=== PATIENT | female | born 1950 | race Caucasian/White ===

== ENCOUNTER 2018-01-11 08:51 | Day surgery (SDC) | payer MEDICARE, OTHER ==
[~2018-01-11 08:51] MED LIST: CIPR500; CONEST.625; HYDACE7.5; LANS15EC; OMEP20ER; SERT50
== END 2018-01-11 22:57 | disposition home or self-care (01) ==
LOC: MOI MAM 08:51
PROC: 0HBT3ZX Excision of Right Breast, Percutaneous Approach, Diagnostic (ICD-10-PCS; principal; 2018-01-11)
DX: N60.81 Other benign mammary dysplasias of right breast (principal); N62 Hypertrophy of breast
CPT/HCPCS: 19083; 77065; 88305; 88341; 88342; A4648; G0279

== ENCOUNTER 2018-06-08 05:56 | Day surgery (SDC) | payer MEDICARE, OTHER ==
[~2018-06-08] VITALS: Ht 154.9 cm; Wt 92.5 kg
[~2018-06-08 05:56] MED LIST changes: -CONEST.625; +CONEST.625 PO; +CYCL10 PO; +FISH OIL 1,0001 EACH PO; +MULTI VITAMIN1 EACH PO; +OMEPRAZOLE MAGN20 MG PO; +Prinivil10 MG PO; +SERT50 PO; +Solaraze100 GM TOP
[2018-06-09 04:24] LABS: BASOPHILS ABSOLUTE AUTO 0.04 K/mm3 (0.00-0.23); BASOPHILS PERCENT AUTO 0 % (0-2); EOSINOPHILS ABSOLUTE AUTO 0.07 K/mm3 (0.00-0.68); EOSINOPHILS PERCENT AUTO 1 % (0-6); Hematocrit 27.1 % (33.0-51.0); Hemoglobin 8.6 g/dL (11.5-16.0); IMMATURE GRAN ABSOLUTE AUTO 0.04 K/mm3 (0.00-0.10); IMMATURE GRAN PERCENT AUTO 0 % (0-1); LYMPHOCYTES ABSOLUTE AUTO 3.05 K/mm3 (0.84-5.20); LYMPHOCYTES PERCENT AUTO 24 % (21-46); MONOCYTES ABSOLUTE AUTO 1.38 K/mm3 (0.16-1.47); MONOCYTES PERCENT AUTO 11 % (4-13); Mean Corpuscular HGB 26.7 pg (26.0-34.0); Mean Corpuscular HGB Conc 31.7 g/dL (31.5-36.5); Mean Corpuscular Volume 84 fL (80-100); Mean Platelet Volume 10.1 fL (9.1-12.4); NEUTROPHILS ABSOLUTE AUTO 8.41 K/mm3 (1.96-9.15); NEUTROPHILS PERCENT AUTO 65 % (41-73); Platelet Count 337 K/mm3 (150-400); RDW Coefficient Variation 14.1 % (11.7-14.2); RDW Standard Deviation 43.5 fL (35.1-46.3); Red Blood Cell Count 3.22 M/mm3 (3.80-5.20); White Blood Cell Count 12.99 K/mm3 (4.00-11.30)
[2018-06-09 04:40] LABS: Anion Gap 9 mmol/L (6-16); Blood Urea Nitrogen 13 mg/dL (8-24); Bun/Creatinine Ratio 19.2 (12.0-20.0); CO2, Blood 25 mmol/L (21-32); Chloride, Blood 99 mmol/L (98-108); Creatinine, Blood 0.68 mg/dL (0.40-1.00); Glomerular Filtration Rate >60 (60-); Glucose, Blood 124 mg/dL (70-99); Potassium, Blood 4.2 mmol/L (3.5-5.5); Sodium, Blood 133 mmol/L (136-145)
[2018-06-09] MEDS ORDERED: OXYC5 PO (13:06)
[2018-06-09] MEDS ORDERED: Aspirin EC325 MG PO (13:07)
[2018-06-09] MEDS ORDERED: DOCU100 PO (13:08)
== END 2018-06-09 13:13 | disposition home or self-care (01) ==
LOC: ORSCMMR 05:56 → ORD 07:30 → ORSCMMR 07:30 → SURS 10:52 → ORSCMMR 06-09 13:13 → SURS 06-09 13:13
PROVIDERS: Orthopaedic Surgery
PROC: 0SRC0J9 Replacement of Right Knee Joint with Synthetic Substitute, Cemented, Open Approach (ICD-10-PCS; principal; 2018-06-08 07:30)
DX: M17.11 Unilateral primary osteoarthritis, right knee (principal); M79.7 Fibromyalgia; Z79.899 Other long term (current) drug therapy
CPT/HCPCS: 36415; 73560-RT; 80048; 85025; 88300; 97110; 97116; 97162; 97530; C1713; C1776; G8978; G8979; J0171; J0690; J0735; J1100; J1885; J2250; J2405; J2710; J2795; J3010; J7120

== ENCOUNTER 2018-12-21 06:09 | Day surgery (SDC) | payer MEDICARE, OTHER ==
[~2018-12-21] VITALS: Ht 154.9 cm; Wt 91.6 kg
[~2018-12-21 06:09] MED LIST changes: +Aspirin EC325 MG PO; +CONEST1.25 PO; +DOCU100 PO; +Hair, Skin & N1 EACH PO; +OXYC5 PO
--- NOTE | 2018-12-21 06:36 | NUR ---
History, Chart, Medications and Allergies reviewed before start of procedure. Patient confirms NPO status and agrees with scheduled surgery. Lungs clear T/O to Auscultation. Patient reports completing Chlorhexadine shower X2 prior to admission to hospital. Pre-Op teaching done. Pt verbalizes understanding.
--- NOTE | 2018-12-21 07:07 | NUR ---
WIRED [employer] REPORT COMPLETED AT BEDSIDE WITH JOSE GRANT RN.
--- NOTE | 2018-12-21 07:12 | NUR ---
LIAISON AT BEDSIDE WITH TIME, TRACKER EXPLAINED AND OPPORTUNITY FOR QUESTIONS PROVIDED.
--- NOTE | 2018-12-21 07:18 | NUR ---
PATIENT UP FOR UNMEASURED VOID AT 0700.
--- NOTE | 2018-12-21 16:09 | NUR ---
THERAPY: PT IN ROOM TO SEE PATIENT. PT HAS BEEN UP IN CHAIR. MEDICATED PRN FOR PAIN. WILL MONITOR PROGRESS.
--- NOTE | 2018-12-21 19:23 | NUR ---
PT HAS BEEN STABLE THIS SHIFT. PT PAIN CONTROLLED WITH PRN AND SCHEDULED MEDS. PT WORKED WELL WITH THERAPY TO AMBULATE AND SIT IN CHAIR. PAS, TEDS, POLAR PACK IN PLACE. SL IV PER ORDERS, PT TAKING PO WELL AND VOIDING. TXA COMPLETED. 1 MORE DOSE ABX REMAINING. USES CALL LIGHT APPROPRIATELY. PLAN TO DC HOME TOMORROW. DRESSING CDI.
[2018-12-22 05:06] LABS: BASOPHILS ABSOLUTE AUTO 0.03 K/mm3 (0.00-0.23); BASOPHILS PERCENT AUTO 0 % (0-2); EOSINOPHILS ABSOLUTE AUTO 0.04 K/mm3 (0.00-0.68); EOSINOPHILS PERCENT AUTO 0 % (0-6); Hematocrit 26.3 % (33.0-51.0); Hemoglobin 8.4 g/dL (11.5-16.0); IMMATURE GRAN ABSOLUTE AUTO 0.05 K/mm3 (0.00-0.10); IMMATURE GRAN PERCENT AUTO 0 % (0-1); LYMPHOCYTES ABSOLUTE AUTO 2.56 K/mm3 (0.84-5.20); LYMPHOCYTES PERCENT AUTO 21 % (21-46); MONOCYTES ABSOLUTE AUTO 1.46 K/mm3 (0.16-1.47); MONOCYTES PERCENT AUTO 12 % (4-13); Mean Corpuscular HGB 26.7 pg (26.0-34.0); Mean Corpuscular HGB Conc 31.9 g/dL (31.5-36.5); Mean Corpuscular Volume 84 fL (80-100); Mean Platelet Volume 9.5 fL (9.1-12.4); NEUTROPHILS ABSOLUTE AUTO 7.99 K/mm3 (1.96-9.15); NEUTROPHILS PERCENT AUTO 66 % (41-73); Platelet Count 314 K/mm3 (150-400); RDW Coefficient Variation 15.3 % (11.7-14.2); RDW Standard Deviation 46.5 fL (35.1-46.3); Red Blood Cell Count 3.15 M/mm3 (3.80-5.20); White Blood Cell Count 12.13 K/mm3 (4.00-11.30)
[2018-12-22 05:22] LABS: International Normalized Ratio 0.98; Prothrombin Time Results 10.4 Sec (9.7-11.5)
[2018-12-22 05:36] LABS: Anion Gap 8 mmol/L (6-16); Blood Urea Nitrogen 15 mg/dL (8-24); Bun/Creatinine Ratio 21.8 (12.0-20.0); CO2, Blood 25 mmol/L (21-32); Calcium, Blood 8.4 mg/dL (8.5-10.1); Chloride, Blood 103 mmol/L (98-108); Creatinine, Blood 0.69 mg/dL (0.40-1.00); Glomerular Filtration Rate >60 (60-); Glucose, Blood 121 mg/dL (70-99); Magnesium, Blood 1.9 mg/dL (1.6-2.4); Potassium, Blood 3.9 mmol/L (3.5-5.5); Sodium, Blood 136 mmol/L (136-145)
--- NOTE | 2018-12-22 07:00 | NUR ---
REPORT FROM SUMMER RN. ASSUMED PT CARE.
--- NOTE | 2018-12-22 07:24 | NUR ---
PT RESTING IN POSITION OF COMFORT. MARLENY.
--- NOTE | 2018-12-22 08:16 | NUR ---
BREAKFAST TRAY PLACED AT BEDSIDE. PT UP WITH THERAPY. TO ORTHO GYM WITH PT.
--- NOTE | 2018-12-22 08:50 | NUR ---
PT MEDICATED PER EMAR. 10MG OXYCODONE PROVIDED. PT SITTING IN CHAIR EATING BREAKFAST. DENIES OTHER NEEDS. ASSESSMENT CHARTED.
--- NOTE | 2018-12-22 09:51 | NUR ---
PT RESTING IN POSITION OF COMFORT. SITTING IN CHAIR READING.
--- NOTE | 2018-12-22 11:14 | NUR ---
PT SITTING UP IN CHAIR. READING AND WATCHING TV. UPDATED ON DC PLAN. PT DENIES NEEDS.
--- NOTE | 2018-12-22 12:45 | NUR ---
ASSUMED CARE OF PT. PT IS UP IN CHAIR, ATE 100% OF MEAL. MEDICATED FOR PAIN. NO C/O. CALL LIGHT IN REACH.
[2018-12-22] MEDS ORDERED: WARF5 PO (16:48)
--- NOTE | 2018-12-22 17:13 | NUR ---
REVIEWED DC INSTRUCTIONS WITH PT AND SPOUSE, GAVE ONE TIME DOSE OF COUMADIN. RX GIVEN. IV DC'D. PT GIVEN A COUPLE DRESSINGS TO GO HOME WITH. NO FURTHER QUESTIONS OR CONCERNS.
== END 2018-12-22 17:49 | disposition home or self-care (01) ==
LOC: ORSCMMR 06:09 → ORD 07:30 → ORSCMMR 07:30 → SURS 11:14 → ORSCMMR 12-22 17:49
PROVIDERS: Orthopaedic Surgery
PROC: 0SRD0J9 Replacement of Left Knee Joint with Synthetic Substitute, Cemented, Open Approach (ICD-10-PCS; principal; 2018-12-21 07:30)
DX: M17.12 Unilateral primary osteoarthritis, left knee (principal); I10 Essential (primary) hypertension; K21.9 Gastro-esophageal reflux disease without esophagitis; R01.1 Cardiac murmur, unspecified; E66.01 Morbid (severe) obesity due to excess calories; Z68.38 Body mass index [BMI] 38.0-38.9, adult; Z79.899 Other long term (current) drug therapy
CPT/HCPCS: 36415; 73560-LT; 80048; 83735; 85025; 85610; 86850; 86900; 86901; 88300; 97110; 97116; 97162; C1713; C1776; J0171; J0690; J0735; J1100; J1885; J2250; J2405; J2795; J3010; J7120

== ENCOUNTER 2018-12-31 19:12 | Emergency (ER) | payer MEDICARE, OTHER ==
[~2018-12-31] VITALS: Ht 154.9 cm; Wt 88.5 kg
[~2018-12-31 19:12] MED LIST changes: +WARF5 PO
[2018-12-31 19:55] LABS: BASOPHILS ABSOLUTE AUTO 0.16 K/mm3 (0.00-0.23); BASOPHILS PERCENT AUTO 1 % (0-2); EOSINOPHILS ABSOLUTE AUTO 0.54 K/mm3 (0.00-0.68); EOSINOPHILS PERCENT AUTO 5 % (0-6); Hematocrit 34.9 % (33.0-51.0); Hemoglobin 10.9 g/dL (11.5-16.0); IMMATURE GRAN ABSOLUTE AUTO 0.07 K/mm3 (0.00-0.10); IMMATURE GRAN PERCENT AUTO 1 % (0-1); LYMPHOCYTES ABSOLUTE AUTO 3.53 K/mm3 (0.84-5.20); LYMPHOCYTES PERCENT AUTO 30 % (21-46); MONOCYTES ABSOLUTE AUTO 0.97 K/mm3 (0.16-1.47); MONOCYTES PERCENT AUTO 8 % (4-13); Mean Corpuscular HGB 26.7 pg (26.0-34.0); Mean Corpuscular HGB Conc 31.2 g/dL (31.5-36.5); Mean Corpuscular Volume 86 fL (80-100); Mean Platelet Volume 9.3 fL (9.1-12.4); NEUTROPHILS ABSOLUTE AUTO 6.48 K/mm3 (1.96-9.15); NEUTROPHILS PERCENT AUTO 55 % (41-73); Platelet Count 603 K/mm3 (150-400); Red Blood Cell Count 4.08 M/mm3 (3.80-5.20); White Blood Cell Count 11.75 K/mm3 (4.00-11.30)
[2018-12-31 20:17] LABS: Alanine Aminotransfer (ALT/SGP 17 U/L (12-78); Albumin, Blood 3.7 g/dL (3.4-5.0); Albumin/Globulin Ratio 0.8 (0.8-1.8); Alk Phos 78 U/L (50-136); Anion Gap 7 mmol/L (6-16); Aspartate Aminotrans (AST/SGOT 13 U/L (12-37); Bilirubin, Total 0.2 mg/dL (0.1-1.0); Blood Urea Nitrogen 12 mg/dL (8-24); Bun/Creatinine Ratio 20.3 (12.0-20.0); CO2, Blood 25 mmol/L (21-32); Calcium, Blood 9.3 mg/dL (8.5-10.1); Chloride, Blood 106 mmol/L (98-108); Creatinine, Blood 0.59 mg/dL (0.40-1.00); Globulin, Blood 4.5 g/dL (2.2-4.0); Glomerular Filtration Rate >60 (60-); Glucose, Blood 86 mg/dL (70-99); Potassium, Blood 3.7 mmol/L (3.5-5.5); Sodium, Blood 138 mmol/L (136-145); Total Protein, Blood 8.2 g/dL (6.4-8.2); Troponin I <0.015 ng/mL (0.000-0.040)
== END 2018-12-31 23:58 | disposition home or self-care (01) ==
LOC: ER 19:12
PROVIDERS: Physician Assistant
DX: R07.9 Chest pain, unspecified (principal); Z88.6 Allergy status to analgesic agent; Z88.8 Allergy status to other drugs, medicaments and biological substances; Z79.899 Other long term (current) drug therapy; I10 Essential (primary) hypertension; E78.00 Pure hypercholesterolemia, unspecified
CPT/HCPCS: 36415; 71046; 80053; 84484; 85025; 93005; 93010; 99285-25

== ENCOUNTER 2019-03-25 08:18 | Day surgery (SDC) | payer MEDICARE, OTHER | END 2019-03-26 00:05 | disposition home or self-care (01) | LOC: MOI MAM 08:18 | DX: R92.0 Mammographic microcalcification found on diagnostic imaging of breast (principal); R92.8 Other abnormal and inconclusive findings on diagnostic imaging of breast | CPT/HCPCS: 19281 ==

== ENCOUNTER 2019-04-01 07:49 | Day surgery (SDC) | payer MEDICARE, OTHER ==
[~2019-04-01] VITALS: Ht 154.9 cm; Wt 90.9 kg
== END 2019-04-01 11:40 | disposition home or self-care (01) ==
LOC: ORSCSDS 07:49
PROVIDERS: Surgery
PROC: 0HBT0ZX Excision of Right Breast, Open Approach, Diagnostic (ICD-10-PCS; principal; 2019-04-01 09:15)
DX: D24.1 Benign neoplasm of right breast (principal); R92.8 Other abnormal and inconclusive findings on diagnostic imaging of breast; I10 Essential (primary) hypertension; K21.9 Gastro-esophageal reflux disease without esophagitis; M79.7 Fibromyalgia; E66.01 Morbid (severe) obesity due to excess calories; Z68.37 Body mass index [BMI] 37.0-37.9, adult; Z79.899 Other long term (current) drug therapy
CPT/HCPCS: 76098; 88307; J0690; J1100; J2250; J2370; J2405; J2704; J3010; J7120

== ENCOUNTER → 2020-06-11 | Outpatient (CLI) | payer MEDICARE, OTHER | LOC: PLD 08:19 → LAB SHORT 08:19 | DX: D22.71 Melanocytic nevi of right lower limb, including hip (principal); D22.61 Melanocytic nevi of right upper limb, including shoulder | CPT/HCPCS: 88305 ==

== ENCOUNTER 2020-12-27 08:31 | Day surgery (SDC) | payer MEDICARE, OTHER ==
[~2020-12-27] VITALS: Ht 154.9 cm; Wt 90.7 kg
== END 2020-12-27 10:43 | disposition home or self-care (01) ==
LOC: ORSCSDS 08:31
PROVIDERS: Surgery
PROC: 0DJD8ZZ Inspection of Lower Intestinal Tract, Via Natural or Artificial Opening Endoscopic (ICD-10-PCS; principal; 2020-12-27 09:30)
PROC: 0DB68ZX Excision of Stomach, Via Natural or Artificial Opening Endoscopic, Diagnostic (ICD-10-PCS; principal; 2020-12-27 09:30)
PROC: 0DB48ZX Excision of Esophagogastric Junction, Via Natural or Artificial Opening Endoscopic, Diagnostic (ICD-10-PCS; principal; 2020-12-27 09:30)
DX: K21.9 Gastro-esophageal reflux disease without esophagitis (principal); Z12.11 Encounter for screening for malignant neoplasm of colon; Z86.010 Personal history of colon polyps; Z80.0 Family history of malignant neoplasm of digestive organs; F32.9 Major depressive disorder, single episode, unspecified; I10 Essential (primary) hypertension; M79.7 Fibromyalgia; K44.9 Diaphragmatic hernia without obstruction or gangrene; K57.30 Diverticulosis of large intestine without perforation or abscess without bleeding; Z79.899 Other long term (current) drug therapy
CPT/HCPCS: 43239; G0105; 88305; 88342; J2704; J7120